=== PATIENT | male | born 1990 ===

== ENCOUNTER 2017-10-11 19:09 | Emergency (ER) | payer OTHER ==
[2017-10-11 19:19] VITALS: BP 115/78; PULSE 83; RESP 18; TEMP 98.2; O2SAT 97
[2017-10-11] MEDS ORDERED: Bacitracin 500 Units/gm Oint Foilpak UD TOP STA (19:31)
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
== END 2017-10-11 22:12 | disposition home or self-care (01) ==
LOC: H.ER 19:09
DX: S09.90XA Unspecified injury of head, initial encounter (principal); M79.641 Pain in right hand; M25.512 Pain in left shoulder; M54.9 Dorsalgia, unspecified; V03.10XA Pedestrian on foot injured in collision with car, pick-up truck or van in traffic accident, initial encounter; Y92.410 Unspecified street and highway as the place of occurrence of the external cause; Y93.51 Activity, roller skating (inline) and skateboarding